=== PATIENT | male | born 1960 | race Caucasian/White ===

== ENCOUNTER 2018-11-17 09:59 | Day surgery (SDC) | payer BC ==
[2018-11-17] VITALS (15 sets, daily range): BP systolic 116–159; BP diastolic 75–99; PULSE 86–97; RESP 11–33; Ht 167.6 cm; Wt 79.5 kg
[~2018-11-17] VITALS: Ht 167.6 cm; Wt 79.5 kg
[2018-11-17] MEDS ORDERED: ATOR40TA68 PO (10:53)
[2018-11-17] MEDS ORDERED: INSU100I12 SQ (10:54)
[2018-11-17] MEDS ORDERED: LANT3I SC (10:55)
[2018-11-17] MEDS ORDERED: LOSA25TA12 PO (10:55)
[2018-11-17] MEDS ORDERED: EMPA10TA PO (10:56)
[2018-11-17] MEDS ORDERED: CLOP75TA27 PO (10:56)
[2018-11-17] MEDS ORDERED: FENTAnyl 50 MCG/ML VIAL ONE (12:08)
[2018-11-17] MEDS ORDERED: MIDAZOLAM 1 MG/ML 2 ML INJ ONE (12:08)
[2018-11-17] MEDS ORDERED: IODIXANOL LOCM 100 ML BTL ONE (12:08)
[2018-11-17] MEDS ORDERED: LIDOCAINE 1% (MDV) 20 ML INJ ONE (12:08)
[2018-11-17] MEDS ORDERED: HEPARIN 1000 UNITS/ML 10 ML INJ ONE (12:08)
[2018-11-17] MEDS ORDERED: HEPARIN 1000 UNITS/NS (A-LINE) 1,000 ML ONE (12:08)
--- NOTE | 2018-11-17 12:58 | SIPON ---
Date/Time of Note Date/Time of Note DATE: 11/17/18 TIME: 12:57 Operative Report Preoperative Diagnosis R TMA necrosis Postoperative Diagnosis same Operation/Procedure Performed aortogram, RLE runoff Surgeon see signature line topographical field assistant none Anesthesia: moderate sedation Estimated blood loss: minimal Transfusion Required none Specimen none Grafts/Implants none Complications none SALVADOR FENG MD Nov 17, 2018 12:58
--- NOTE | 2018-11-17 16:16 | OPR ---
DATE OF OPERATION: 11/17/2018 PREOPERATIVE DIAGNOSIS: Right foot gangrene. POSTOPERATIVE DIAGNOSIS: Right foot gangrene. PROCEDURE PERFORMED: Abdominal aortogram and right lower extremity runoff. SURGEON: Salvador Hartman MD ANESTHESIA: Local with sedation. ESTIMATED BLOOD LOSS: Minimal. COMPLICATIONS: No intraprocedural complications. INDICATIONS: This is a 58-year-old diabetic hypertensive gentleman. He has a right TMA. He had dev eloped a necrotizing infection of the right foot 2 months ago, at [place]. I did an arteriogram a t that time, he had some tibial disease, but mostly had a necrotizing infection in the foot. I had a ngioplastied the distal posterior tibial artery. 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 Portions o f it are healing nicely, but portions of it are just gangrenous or have necrotic subcutaneous skin. I think mostly from the necrotizing infection. It was prior to the TMA. The infection has cleared. There is no sign of any ongoing infection. I brought him in today for an arteriogram just to make s ure there was not something more than that could be done to increase the perfusion to help it heal be tter. Otherwise I told him there is a 50/50 chance he will need a below knee amputation at some poin t if we can't get into the . PROCEDURE: The patient was brought to the electrical laboratory technician, placed on the table in supine position. Left gr oin was prepped and draped in usual sterile fashion. I began infiltrating the left common femoral ar mack using about 10 mL of 1% Xylocaine. Using micropuncture needle to enter the artery and ultrasoun d guidance, an 0.018 wire was inserted through the needle into the artery. The micropuncture sheath was advanced over the wire , an 0.035 Bentson wire into the abdominal aorta, exchanged the micro puncture sheath for a 6-Portuguese sheath over the wire and advanced an Omniflush catheter into the infra renal aorta and did an aortogram and he used an 0.035 Advantage wire and the Omniflush catheter to ad kim the wire up and over the bifurcation and down into the right SFA and then advanced the catheter down into the right SFA and then did runoff down the right lower extremity. FINDINGS OF ANGIOGRAPHY: Infrarenal aorta. Both common external and internal iliac arteries are wid peter patent. Both common femoral, superficial, and profunda femoral arteries were widely patent. The right SFA and popliteal are patent without any significant disease. Below the knee, there is probab ly 50% stenosis of the proximal anterior tibial. It looks patent and then as it gets toward the dist al calf, it just sort of bay out and dissipates and then it is gone. There is no dorsalis pedis i n the foot. The posterior tibial artery has similar findings; patent proximally and then just sort o f dissipates toward the ankle. The peroneal artery is the dominant flow to the foot. It is a huge a rtery; the TP trunk is widely patent. The peroneal was widely patent. It goes all the way down to t he ankle and then actually does very robust large collaterals going into the foot and filling from th e plantar branch was actually quite briskly, a good size distal plantar branches coming through colla terals from the peroneal and there is no reconstitution of dorsalis pedis. There are some collateral s in the possibly a lateral tarsal branch that reconstitutes through the peroneal collaterals as well . I did not see any real intervention that would benefit him. The anterior and posterior tibial is really just gone and did not reconstitute in the foot and the peroneal has excellent collateralizatio n so I did not proceed with any intervention. We then removed all the catheter sheaths and wires and held pressure on the groin until there was good hemostasis. He was then transferred to the recovery room in stable condition, tolerated the procedure well without any complications. Dictated By: SALVADOR ORDOÑEZ/DOMINICK Conf#: [id number] DID#: [id number] CC: ROSANNE ; MIGUEL KHAN;*[facility]*
== END 2018-11-17 17:11 | disposition home or self-care (01) ==
LOC: SDS 09:59
PROVIDERS: ATTEND Surgery Vascular Surgery
DX: I96 Gangrene, not elsewhere classified (principal); E11.9 Type 2 diabetes mellitus without complications; Z89.421 Acquired absence of other right toe(s)
CPT/HCPCS: 36246; 75630; 80053; 82962; 85025; 85610; 85730; C1769; C1894; J1644; J2250; J3010; Q9967